=== PATIENT | female | born 1970 | race African-American/Black ===

== ENCOUNTER 2017-06-05 22:59 | Emergency (ER) | payer OTHER ==
[~2017-06-05 22:59] MED LIST: AMLO5TAB22 PO; LEVE500 PO; LOSA50TA PO; RANI150 PO; VENL75TA PO
[2017-06-05] MEDS ORDERED: IOHEXOL 350 MG/ML 10 ML VIAL (for RAD DIAG) IVCONTRAST ONE (23:00)
[2017-06-05 23:27] VITALS: BP 155/101; PULSE 89; RESP 19; TEMP 98.3; O2SAT 100
--- NOTE | 2017-06-05 23:57 | PD ---
HPI Chief Complaint: GI Complaint Time Seen by Provider: 23:45 Travel History International Travel<30 days: No Contact w/Intl Traveler<30days: No Traveled to known affect area: No History of Present Illness HPI The patient is a 46 year old female who presents to the [facility] emergency department with a history of not feeling well for the last few days. She reports that she has had a right-sided upper quadrant abdominal pain and right flank pain. She reports that the pain has been coming and going. She reports that the pain is an aching sensation. She reports having generalized fatigue, itchy skin, nausea and vomiting approximately 2 times during the entirety of the illness, and diarrhea has been occurring for the last few days twice per day. She denies having any blood in her stool or black or tarry stools. She denies having pallor to her stool. She reports having urinary frequency, however she reports that this is chronic since her hysterectomy. She denies having any dysuria, urinary urgency, or blood in her urine. She denies having any known recent fevers, cough or congestion, neck pain, chest pain, shortness of breath, or neurologic symptoms. LMP: Status post hysterectomy PFSH Past Medical History Narrative Medical The patient's past medical history is significant for seizures, hypertension, history of chronic pain peer Anxiety: No Depression: Yes Heart Rhythm Problems: No Cancer: No Cardiac Catheterization: No Cardiovascular Problems: Yes (mitral valve prolapse) High Cholesterol: No Congestive Heart Failure: No Coronary Artery Disease: Yes Diabetes: No Diminished Hearing: No Endocrine: No Gastrointestinal Disorders: Yes (GERD) GERD: Yes Genitourinary: No Hiatal Hernia: No Hypertension: Yes Immune Disorder: No Musculoskeletal: Yes (ARTHRITIS) Neurologic: Yes (NEUROPATHY ARMS, HEADACHES) Psychiatric: Yes (ANXIETY) Reproductive: No Respiratory: No Myocardial Infarction: No Pancreatitis: Yes Renal Failure: No Sickle Cell Disease: No Thyroid Disease: No ?: Not : 5 Para: 5 Miscarriage: 0 : 1 Ovarian Cysts: Yes Tubal Ligation: Yes (1994) Past Surgical History Narrative Surgical The patient's past surgical history is significant for hysterectomy, cholecystectomy, cervical spine surgery, right breast lump resection which was benign. Abdominal Surgery: Yes (LAP. MICHEAL) AICD: No Cardiac Surgery: No Cholecystectomy: Yes Coronary Artery Bypass Graft: No Ear Surgery: No Endocrine Surgery: No Eye Surgery: No Genitourinary Surgery: No Gynecologic Surgery: Yes Hysterectomy: Yes Joint Replacement: No Oral Surgery: No Pacemaker: No Thoracic Surgery: No Other Surgery: Yes (2 DISCS REMOVED FROM NECK) Social History Alcohol Use: Yes (OCC) Tobacco Use: Yes (5 CIGS A DAY) Substance Use: No Allergies-Medications (Allergen,Severity, Reaction): Coded Allergies: No Known Allergies (Verified Adverse Reaction, Unknown, 06/05/17) Reported Meds & Prescriptions Reported Meds & Active Scripts Active Zantac 150 Mg Tab (Ranitidine HCl) 150 Mg Tab 150 Mg PO BID 28 Days Keppra (Levetriacetam) 500 Mg Tab 500 Mg PO Q12HR 30 Days Reported Effexor (Venlafaxine HCl) 75 Mg Tab 150 Mg PO DAILY Amlodipine5 5 Mg Tab 1 Tab PO DAILY Losartan Potassium 50 MG (Losartan Potassium) 50 Mg Tab 20 Mg PO DAILY Review of Systems Except as stated in HPI: all other systems reviewed are Neg General / Constitutional: No: Fever Eyes: No: Visual changes HENT: No: Headaches Cardiovascular: No: Chest Pain or Discomfort Respiratory: No: Shortness of Breath Gastrointestinal: Positive: Nausea, Vomiting, Diarrhea, Abdominal Pain, Changes in Bowel Habits, No: Hematemesis, Hematochezia, Indigestion, Loss of Appetite Genitourinary: Positive: Frequency, No: Urgency, Dysuria Musculoskeletal: No: Pain Skin: No Rash Neurologic: No: Weakness, Focal Abnormalities, Change in Mentation, Slurred Speech, Sensory Disturbance Psychiatric: No: Depression Endocrine: No: Polydipsia Hematologic/Lymphatic: No: Easy Bruising Physical Exam Narrative General: The patient is a well-developed well-nourished female in no acute distress Head and Neck exam: Head is normocephalic atraumatic. Eyes: EOMI, pupils are equal round and reactive to light. Nose: Midline septum with pink mucous membranes Mouth: Dentition unremarkable. Moist mucus membranes. Posterior oropharynx is not erythematous. No tonsillar hypertrophy. Uvula midline. Airway patent. Neck: No palpable lymphadenopathy. No nuchal rigidity. No thyromegaly. Cardiovascular: Regular rate and rhythm without murmurs, gallops, or rubs. No pulse deficit to the extremities on simultaneous auscultation and palpation of her radial artery. Lungs: Clear to auscultation bilaterally. No wheezes, rhonchi, or rales. Abdomen: Soft, with reported tenderness on palpation of the right upper quadrant of the abdomen. No other tenderness on palpation of the other quadrants. Negative Jane sign. No tenderness on palpation of McBurney's point. No guarding, rebound, or rigidity. Normal bowel sounds are audible. Extremities: No clubbing, cyanosis, or edema. 2+ pulses in all 4 extremities. No calf tenderness on palpation. Back: No spinous process tenderness to palpation. No tenderness on palpation of the CVA area bilaterally. Neurologic Exam: Grossly nonfocal. Skin Exam: No rash noted. Intact skin that is warm and dry. Data Data Last Documented VS Vital Signs Date Time Temp Pulse Resp B/P (MAP) Pulse Ox O2 Delivery O2 Flow Rate FiO2 06/05/17 23:27 98.3 89 19 155/101 (119) 100 Orders Orders Complete Blood Count With Diff (06/05/17 23:48) Comprehensive Metabolic Panel (06/05/17 23:48) C-Reactive Protein (Crp) (06/05/17 23:48) Lipase (06/05/17 23:48) Urinalysis - C+S If Indicated (06/05/17 23:48) Iv Access Insert/Monitor (06/05/17 23:48) Ecg Monitoring (06/05/17 23:48) Oximetry (06/05/17 23:48) Ed Urine Pregnancytest Poc (06/05/17 23:48) Sodium Chlor 0.9% 1000 Ml Inj (Ns 1000 M (06/06/17 00:00) Ondansetron Inj (Zofran Inj) (06/06/17 00:00) Ketorolac Inj (Toradol Inj) (06/06/17 01:15) Ct Abd/Pel W Iv Contrast(Rout) (06/06/17 01:07) Iohexol 350 Inj (Omnipaque 350 Inj) (06/05/17 23:00) Labs Laboratory Tests Test 06/06/17 00:45 White Blood Count 9.4 TH/MM3 Red Blood Count 4.01 MIL/MM3 Hemoglobin 12.0 GM/DL Hematocrit 35.1 % Mean Corpuscular Volume 87.5 FL Mean Corpuscular Hemoglobin 29.8 PG Mean Corpuscular Hemoglobin Concent 34.1 % Red Cell Distribution Width 13.6 % Platelet Count 280 TH/MM3 Mean Platelet Volume 7.7 FL Neutrophils (%) (Auto) 49.1 % Lymphocytes (%) (Auto) 44.0 % Monocytes (%) (Auto) 5.4 % Eosinophils (%) (Auto) 0.9 % Basophils (%) (Auto) 0.6 % Neutrophils # (Auto) 4.6 TH/MM3 Lymphocytes # (Auto) 4.1 TH/MM3 Monocytes # (Auto) 0.5 TH/MM3 Eosinophils # (Auto) 0.1 TH/MM3 Basophils # (Auto) 0.1 TH/MM3 CBC Comment DIFF FINAL Differential Comment Urine Color LIGHT-YELLOW Urine Turbidity CLEAR Urine pH 6.5 Urine Specific Pauline 1.010 Urine Protein NEG mg/dL Urine Glucose (UA) NEG mg/dL Urine Ketones NEG mg/dL Urine Occult Blood SMALL Urine Nitrite NEG Urine Bilirubin NEG Urine Urobilinogen LESS THAN 2.0 MG/DL Urine Leukocyte Esterase NEG Urine RBC 3 /hpf Urine WBC 1 /hpf Urine Squamous Epithelial Cells 2 /hpf Urine Bacteria RARE /hpf Urine Mucus FEW /lpf Microscopic Urinalysis Comment CULT NOT INDICATED Blood Urea Nitrogen 12 MG/DL Creatinine 0.93 MG/DL Random Glucose 91 MG/DL Total Protein 8.2 GM/DL Albumin 3.9 GM/DL Calcium Level 9.3 MG/DL Alkaline Phosphatase 97 U/L Aspartate Amino Transf (AST/SGOT) 14 U/L Alanine Aminotransferase (ALT/SGPT) 30 U/L Total Bilirubin 0.2 MG/DL Sodium Level 141 MEQ/L Potassium Level 3.7 MEQ/L Chloride Level 106 MEQ/L Carbon Dioxide Level 28.1 MEQ/L Anion Gap 7 MEQ/L Estimat Glomerular Filtration Rate 79 ML/MIN C-Reactive Protein 2.31 MG/DL Lipase 142 U/L MDM Medical Decision Making Medical Screen Exam Complete: Yes Emergency Medical Condition: Yes Medical Record Reviewed: Yes Interpretation(s) Last Impressions Abdomen/Pelvis CT 06/06/17106 Signed Impressions: Service Date/Time: Tuesday, June 06, 2017 03:11 - CONCLUSION: 1. No acute findings on abdomen and pelvic CT. Kan Maya MD Differential Diagnosis Biliary ductal obstruction, versus pyelonephritis, versus kidney stone, versus viral syndrome, versus musculoskeletal strain Narrative Course During the course of the patient's emergency department visit, the patient's history, examination, and differential diagnosis were reviewed with the patient. The patient was placed on a monitor and storage bin tender with oximetry and frequent blood pressure monitoring. The patient had IV access obtained and blood work sent for analysis. The patient was initially provided normal saline 1 L IV fluid bolus, Zofran 4 mg IV, ketorolac 15 mg IV. The patient's laboratory studies were reviewed and remarkable for a CBC that is within normal limits, CMP is remarkable for GFR of 79, AST 14, lipase 142, C- reactive protein is 2.31, urinalysis shows small occult blood rare bacteria 3 RBCs, WBCs 1 Radiology studies were reviewed and remarkable for a CT scan of the abdomen and pelvis that shows no acute abnormality. The patient's results were discussed with her. The patient on examination has had improvement in her symptoms. Unfortunately, the exact cause of the pain is not able to be discerned. As the patient has been experiencing nausea, vomiting , and diarrhea it could be related to viral intestinal process. The patient has no evidence of an acute abdomen on exam. The patient was instructed regarding the importance of following up with her primary care physician for reexamination in the next 2 days for improvement. The patient will be discharged home with a prescription for Phenergan for nausea. The patient is resting comfortably and feels better, is alert and in no distress. The patient's results and examination findings were discussed with the patient. The repeat examination is unremarkable and benign. The history, exam, diagnostic testing, and current condition do not suggest any significant pathology to warrant further testing, continued ED treatment, admission, or surgical evaluation at this point. The vital signs have been stable. The patient does not have uncontrollable pain, intractable vomiting, or other significant symptoms. The patient's condition is stable and appropriate for discharge. The patient will pursue further outpatient evaluation with a primary care physician or other designated or consulting physician as indicated in the discharge instructions. The patient expressed understanding and was agreeable with this plan. Diagnosis Primary Impression: Abdominal pain Qualified Codes: R10.11 - Right upper quadrant pain Additional Impression: Vomiting and diarrhea Referrals: Primary Care Physician 2 days Patient Instructions: Abdominal Pain (ED), General Instructions Med/Other Pt SpecificInfo: Prescription(s) given Scripts Promethazine (Phenergan) 25 Mg Tablet 25 MG PO Q8HR Y for NAUSEA OR VOMITING, #3 TAB 0 Refills Prov: Nusrat Guardado MD 06/06/17 Disposition: 01 DISCHARGE HOME Condition: Stable Nusrat Guardado MD Jun 05, 2017 23:57
[2017-06-06] MEDS ORDERED: SODIUM CHLOR 0.9% 1000 ML INJ 1,000 ML IV ONE
[2017-06-06] MEDS ORDERED: ONDANSETRON HCL 4 MG/2 ML VIAL IV ONE
[2017-06-06 01:02] LABS: AUTOMATED NEUTROPHIL # 4.6 TH/MM3 (1.8-7.7); BASOPHIL # 0.1 TH/MM3 (0-0.2); BASOPHIL % 0.6 % (0.0-2.0); EOSINOPHIL # 0.1 TH/MM3 (0-0.4); EOSINOPHIL % 0.9 % (0.0-4.0); HEMATOCRIT 35.1 % (35.0-46.0); LYMPHOCYTE # 4.1 TH/MM3 (1.0-4.8); MEAN CELL VOLUME 87.5 FL (80.0-100.0); MEAN CORPUSCULAR HEMOGLOBIN 29.8 PG (27.0-34.0); MEAN CORPUSCULAR HGB CONC 34.1 % (32.0-36.0); MEAN PLATELET VOLUME 7.7 FL (7.0-11.0); MONO % 5.4 % (0.0-8.0); MONOCYTE # 0.5 TH/MM3 (0-0.9); NEUT % 49.1 % (16.0-70.0); PLATELET COUNT 280 TH/MM3 (150-450); RED BLOOD COUNT 4.01 MIL/MM3 (4.00-5.30); RED CELL DISTRIBUTION WIDTH 13.6 % (11.6-17.2); WHITE BLOOD COUNT 9.4 TH/MM3 (4.0-11.0)
[2017-06-06 01:08] LABS: BACTERIA, URINE RARE /hpf; BILIRUBIN, URINE NEG (NEG); BLOOD, URINE SMALL (NEG); GLUCOSE,URINE NEG (NEG); KETONE, URINE NEG (NEG); MUCUS URINE FEW /lpf (OCC); NITRITE,URINE NEG (NEG); PH, URINE 6.5 (5.0-8.5); SQUAMOUS EPITHELIAL CELL URINE 2 /hpf (0-5); URINE COLOR LIGHT-YELLOW (YELLW/STRAW); URINE LEUKOCYTE ESTERASE NEG (NEG)
[2017-06-06] MEDS ORDERED: KETOROLAC TROMETHAMINE 30 MG/ML (IVP) VIAL IV PUSH ONE (01:15)
[2017-06-06 01:25] LABS: ALKALINE PHOSPHATASE 97 U/L (45-117); TOTAL BILIRUBIN ADULT 0.2 MG/DL (0.2-1.0); TOTAL PROTEIN 8.2 GM/DL (6.4-8.2)
[2017-06-06 01:26] LABS: ALBUMIN 3.9 GM/DL (3.4-5.0); ALT (GPT) 30 U/L (10-53); AST (GOT) 14 U/L (15-37); BICARBONATE 28.1 MEQ/L (21.0-32.0); BLOOD UREA NITROGEN 12 MG/DL (7-18); C-REACTIVE PROTEIN 2.31 MG/DL (0.00-0.30); CALCIUM 9.3 MG/DL (8.5-10.1); CHLORIDE 106 MEQ/L (98-107); CREATININE 0.93 MG/DL (0.50-1.00); GLOMERULAR FILTRATION RATE 79 ML/MIN (>89); GLUCOSE,RANDOM 91 MG/DL (74-106); SODIUM (NA) 141 MEQ/L (136-145)
--- NOTE | 2017-06-06 03:52 | RADRPT ---
EXAM DATE/TIME: 06/06/2017 03:11 [facility] COMPARISON: No previous studies available for comparison. INDICATIONS : Abdomen pain with nausea. IV CONTRAST: 70 cc Omnipaque 350 (iohexol) IV ORAL CONTRAST: No oral contrast ingested. RADIATION DOSE: 7.47 CTDIvol (mGy) MEDICAL HISTORY : Cardiovascular disease. Hypertension. Pancreatitis.GERD SURGICAL HISTORY : Hysterectomy. Cholecystectomy. ENCOUNTER: Initial ACUITY: 3 days PAIN SCALE: 6/10 LOCATION: Bilateral abdomen TECHNIQUE: Volumetric scanning of the abdomen and pelvis was performed. Using automated exposure control and ad justment of the mA and/or kV according to patient size, radiation dose was kept as low as reasonably achievable to obtain optimal diagnostic quality images. DICOM format image data is available electro nically for review and comparison. FINDINGS: Lung bases are clear. No acute findings in the liver, spleen, adrenals, kidneys or pancreas. Previous cholecystectomy. No free fluid. No bowel obstruction. No adenopathy. No acute bony abnormalities. CONCLUSION: 1. No acute findings on abdomen and pelvic CT. Kan Maya MD on June 06, 2017 at 3:47 Board Certified Radiologist. This report was verified electronically.
[2017-06-06] MEDS ORDERED: PROM25TA10 PO (04:18)
== END 2017-06-06 04:50 | disposition home or self-care (01) ==
LOC: NEPC 22:59
DX: R10.11 Right upper quadrant pain (principal); R19.7 Diarrhea, unspecified; R11.2 Nausea with vomiting, unspecified; F32.9 Major depressive disorder, single episode, unspecified; I34.1 Nonrheumatic mitral (valve) prolapse; I25.10 Atherosclerotic heart disease of native coronary artery without angina pectoris; K21.9 Gastro-esophageal reflux disease without esophagitis; I10 Essential (primary) hypertension; M19.90 Unspecified osteoarthritis, unspecified site; F41.9 Anxiety disorder, unspecified; G89.29 Other chronic pain; Z72.0 Tobacco use
CPT/HCPCS: 74177; 80053; 81001; 83690; 84703; 85025; 86140; 96361; 96374; 96375; 99284; J1885; J2405; J7030; Q9967